=== PATIENT | female | born 1960 | race Caucasian/White ===

== ENCOUNTER 2019-04-01 09:30 | Emergency (ER) | payer MEDICAID ==
[~2019-04-01] VITALS: Ht 170.2 cm; Wt 63.5 kg
[~2019-04-01 09:30] MED LIST: ALB5IS NEB; CARB25TA77; CARI350T22; CLON0.1T; DOXE50CA57; FLU220IH; HYDR-1421 PO; IBUP800T24 PO; IPRASOL39 NEB; LORA10CA7; LORA1TAB12; OMEP20TA69; PAROXETINE; RANI150C11; SENN8.6T21 PO; TRAZ150T79; [UNRECOGNIZED DRUG - OTHER]
[2019-04-01] MEDS: SODIUM CHLORIDE 0.9% 1,000 ML IVB ONE (10:27)
[2019-04-01 10:32] LABS: Basophils # (auto) 0.1 uL; Basophils % (auto) 0.9 % (0.0-2.0); Eosinophils # (auto) 0 uL; Hematocrit 43.6 % (36.0-46.0); Hemoglobin 15.3 g/dL (12.2-16.2); Lymphocytes # (auto) 1.1 uL; Lymphocytes % (auto) 18.6 % (10.0-50.0); Mean Corpuscular Hemoglobin 29.5 pg (28.0-32.0); Mean Corpuscular Hgb Conc. 35.1 g/dL (32.0-36.0); Monocytes # (auto) 0.5 uL; Monocytes % (auto) 7.6 % (0.0-12.0); Neutrophils # (auto) 4.4 uL; Neutrophils % (auto) 72.9 % (37.0-80.0); Nucleated Red Blood Cells % 0.2 %; Platelet Count (auto) 377 10^3/uL (140-450); Red Blood Cells 5.19 10^6/uL (4.0-5.20); Red Cell Distribution Width 12.9 % (11.8-14.3)
[2019-04-01 11:06] LABS: Alanine Aminotransferase 17 U/L (13-56); Albumin 4.3 g/dL (3.4-5.0); Anion Gap 13 (5-15); BUN/Creatinine Ratio 16.9; Blood Alcohol < 3.0 mg/dL (0-5); Blood Urea Nitrogen 15 mg/dL (7-18); Calcium 9.9 mg/dL (8.5-10.1); Carbon Dioxide 19 mmol/L (21-32); Chloride 108 mmol/L (98-107); GFR African American 84 mL/min; GFR Non-African American 69 mL/min; Glucose 124 mg/dL (74-106); Potassium 3.1 mmol/L (3.5-5.1); Sodium 140 mmol/L (136-145); Total Protein 8.4 g/dL (6.4-8.2)
[2019-04-01 11:08] LABS: Alkaline Phosphatase 92 U/L (45-117); Aspartate Aminotransferase 16 U/L (15-37)
[2019-04-01 11:26] LABS: Urine Bacteria FEW /hpf (None Seen); Urine Blood TRACE /uL (Negative); Urine Specific Gravity 1.005 (1.001-1.035); Urine WBC 17 /hpf (0 - 5); Urine WBC Clumps PRESENT /hpf (None Seen)
[2019-04-01] MEDS: cefTRIAXone 1GM/50ML D5W 50 ML IV ONE (13:38)
[2019-04-01] MEDS: POTASSIUM EFFERVESENT TAB 25 MEQ PO ONE (13:38)
[2019-04-01 13:46] VITALS: BP 146/62
== END 2019-04-01 13:55 | disposition home or self-care (01) ==
LOC: ER 09:30 → EDBD 09:30 → OVERFLOW 09:31 → UNDOADMIN 09:31 → ER 13:55
DX: E86.0 Dehydration (principal); N39.0 Urinary tract infection, site not specified; F20.9 Schizophrenia, unspecified; F32.9 Major depressive disorder, single episode, unspecified; F41.9 Anxiety disorder, unspecified; J44.9 Chronic obstructive pulmonary disease, unspecified; F17.210 Nicotine dependence, cigarettes, uncomplicated; E87.6 Hypokalemia; Z86.73 Personal history of transient ischemic attack (TIA), and cerebral infarction without residual deficits
CPT/HCPCS: 36415; 70450; 80053; 80320; 81001; 84484; 85025; 93005; 96361; 96365; 99284; J0696; J7030

== ENCOUNTER 2019-05-25 23:34 | Inpatient (IN) | payer MEDICAID ==
[~2019-05-25] VITALS: Ht 170.2 cm; Wt 71.2 kg
[~2019-05-25 23:34] MED LIST changes: -LORA1TAB12; +LORA1TAB23; -TRAZ150T79; +TRAZ1TAB12
[2019-05-26] VITALS (8 sets, daily range): BP systolic 123–160; BP diastolic 79–97
[2019-05-26 00:32] LABS: Basophils # (auto) 0 10 ^3/uL (0-0.2); Basophils % (auto) 0.6 % (0.0-2.0); Eosinophils # (auto) 0 10 ^3/uL (0-0.8); Hematocrit 45.4 % (36.0-46.0); Hemoglobin 15.8 g/dL (12.2-16.2); Lymphocytes # (auto) 1.1 10 ^3/uL (0.4-5.4); Lymphocytes % (auto) 13.2 % (10.0-50.0); Mean Corpuscular Hemoglobin 29.6 pg (28.0-32.0); Mean Corpuscular Hgb Conc. 34.9 g/dL (32.0-36.0); Mean Corpuscular Volume 84.8 fL (80.0-100.0); Monocytes # (auto) 0.3 10 ^3/uL (0-1.3); Monocytes % (auto) 4.1 % (0.0-12.0); Neutrophils # (auto) 6.7 10 ^3/uL (1.6-8.6); Neutrophils % (auto) 82.1 % (37.0-80.0); Nucleated Red Blood Cells % 0.1 %; Platelet Count (auto) 370 10^3/uL (140-450); Red Blood Cells 5.35 10^6/uL (4.0-5.20); Red Cell Distribution Width 13.4 % (11.8-14.3); White Blood Cell 8.2 10^3/uL (4.4-10.8)
[2019-05-26 00:33] LABS: Alanine Aminotransferase 22 U/L (13-56); Albumin 4.1 g/dL (3.4-5.0); Anion Gap 12 (5-15); Aspartate Aminotransferase 21 U/L (15-37); BUN/Creatinine Ratio 12.7; Blood Alcohol < 3.0 mg/dL (0-5); Blood Urea Nitrogen 15 mg/dL (7-18); Carbon Dioxide 19 mmol/L (21-32); Chloride 105 mmol/L (98-107); GFR African American 61 mL/min; GFR Non-African American 50 mL/min; Glucose 148 mg/dL (74-106); Magnesium 1.9 mg/dL (1.6-2.6); Potassium 3.5 mmol/L (3.5-5.1); Sodium 136 mmol/L (136-145)
[2019-05-26 00:36] LABS: Lactic Acid w/Reflex 3.1 mmol/L (0.4-2.0)
[2019-05-26 00:39] LABS: Alkaline Phosphatase 117 U/L (45-117); INR 1.12 (0.9-1.15); Partial Thromboplastin Time 30.8 sec (23.64-32.05); Total Protein 8.8 g/dL (6.4-8.2)
[2019-05-26] MEDS ORDERED: SODIUM CHLORIDE 0.9% 1,000 ML IV ONE (03:00)
[2019-05-26] MEDS ORDERED: SODIUM CHLORIDE 0.9% 2,000 ML IV ONE (03:45)
[2019-05-26] MEDS ORDERED: LORazepam 2MG/ML-1ML VIAL IV ONE (03:45)
[2019-05-26] MEDS ORDERED: SODIUM CHLORIDE 0.9% 1,000 ML IV SCH (04:51)
[2019-05-26] MEDS ORDERED: IPRATROPIUM BROM 0.5 MG/2.5ML INH SOL NEB PRN (05:00)
[2019-05-26] MEDS ORDERED: DOCUSATE SOD 100 MG CAP PO PRN (05:00)
[2019-05-26] MEDS ORDERED: ACETAMINOPHEN 325 MG TAB PO PRN (05:00)
[2019-05-26] MEDS ORDERED: DEXTROSE (50%) 50ML SYRG IV PRN (05:00)
[2019-05-26] MEDS ORDERED: LORazepam 2MG/ML-1ML VIAL IV PRN (05:00)
[2019-05-26] MEDS ORDERED: ALBUTEROL SULF 2.5 MG/0.5ML(0.5%) NEB SOLN NEB PRN (05:00)
--- NOTE | 2019-05-26 05:18 | NUR ---
Respiratory note: PRN MED NEB TX NOT INDICATED AT THIS TIME. HR 104, RR 16, SPO2 96%, BS CLEAR. NO SIGNS OR SYMPTOMS OF RESPIRATORY DISTRESS NOTED AT THIS TIME. PT INFORMED TO CALL RN IF FEELING SOB OR WHEEZING.
[2019-05-26] MEDS: ONDANSETRON HCL 4 MG/2 ML VIAL IV PRN ×2 (06:26→06:34)
[2019-05-26] MEDS ORDERED: PANTOPRAZOLE 40 MG/10 ML VIAL INJ IV ONE (06:30)
[2019-05-26 06:33] LABS: Potassium 3.3 mmol/L (3.5-5.1)
[2019-05-26 06:44] LABS: Urine WBC None Seen /hpf (0 - 5)
[2019-05-26 06:56] LABS: Urine Bacteria NONE SEEN /hpf (None Seen); Urine Blood Negative /uL (Negative); Urine Specific Gravity 1.018 (1.001-1.035)
[2019-05-26 06:57] LABS: Basophils # (auto) 0 10 ^3/uL (0-0.2); Basophils % (auto) 0.3 % (0.0-2.0); Eosinophils # (auto) 0 10 ^3/uL (0-0.8); Hematocrit 41.9 % (36.0-46.0); Hemoglobin 14.8 g/dL (12.2-16.2); Lymphocytes # (auto) 1.1 10 ^3/uL (0.4-5.4); Lymphocytes % (auto) 12.5 % (10.0-50.0); Mean Corpuscular Hemoglobin 29.9 pg (28.0-32.0); Mean Corpuscular Hgb Conc. 35.2 g/dL (32.0-36.0); Monocytes # (auto) 0.8 10 ^3/uL (0-1.3); Monocytes % (auto) 8.8 % (0.0-12.0); Neutrophils # (auto) 6.9 10 ^3/uL (1.6-8.6); Neutrophils % (auto) 78.4 % (37.0-80.0); Nucleated Red Blood Cells % 0.1 %; Platelet Count (auto) 334 10^3/uL (140-450); Red Blood Cells 4.94 10^6/uL (4.0-5.20); Red Cell Distribution Width 13.3 % (11.8-14.3); White Blood Cell 8.8 10^3/uL (4.4-10.8)
[2019-05-26 07:16] LABS: Alcohol, Urine < 3.0 mg/dL (0-5); Amphetamine Screen, Urine NEGATIVE (NEGATIVE); Barbiturate Scree,Urine NEGATIVE (NEGATIVE); Benzodiazephine Screen, Urine NEGATIVE (NEGATIVE); Cannabinoid Screen, Urine POSITIVE (NEGATIVE); Cocaine Screen, Urine NEGATIVE (NEGATIVE); Opiate Scree,Urine NEGATIVE (NEGATIVE); Phencyclidine Screen, Urine NEGATIVE (NEGATIVE)
[2019-05-26] MEDS ORDERED: ACCU-CHEK COMFORT CURVE STRIP VI SCH (08:00)
[2019-05-26] MEDS ORDERED: InsuLIN REG 1unit/0.01ml Soln (100units/ml) SC SCH (08:00)
[2019-05-26] MEDS ORDERED: POTASSIUM CHL 20 Meq TABLET PO ONE (11:00)
[2019-05-26] MEDS ORDERED: chlordiazePOXIDE HCL 25 MG CAP PO PRN (11:00)
[2019-05-26] MEDS ORDERED: QUET150T2 PO (11:42)
[2019-05-26] MEDS ORDERED: ONDA-155 PO (11:42)
[2019-05-26] MEDS ORDERED: OXYB10TA14 PO (11:42)
[2019-05-26] MEDS ORDERED: GABA300C10 PO (11:42)
[2019-05-26] MEDS ORDERED: AML5T PO (11:42)
[2019-05-26] MEDS ORDERED: LORA-655 PO (11:42)
[2019-05-26] MEDS ORDERED: ROPI6TAB PO (11:42)
[2019-05-26] MEDS ORDERED: ATOR20TA PO (11:42)
[2019-05-26] MEDS ORDERED: POM (11:42)
[2019-05-26 11:45] LABS: Folate (Folic Acid) 20.51 ng/mL (5.38-24)
[2019-05-26] MEDS: cloNIDine HCL 0.1 MG TAB PO SCH ×2 (12:13→21:17)
[2019-05-26] MEDS: traZODone HCL 50 MG TAB PO SCH (12:14)
[2019-05-26] MEDS: PARoxetine 20 MG TAB PO SCH (12:14)
--- NOTE | 2019-05-26 12:20 | NUR ---
Received report from Daria/RN, pt is resting comfortably sitting in bed, sitter at bed side, no pain or distress noted or reported.
--- NOTE | 2019-05-26 13:25 | NUR ---
Report given to Didian/RN.
--- NOTE | 2019-05-26 13:29 | NUR ---
RECEIVED REPORT AND ASSUMED CARE OF PT. PT RESTING IN BED. NO S/S ACUTE DISTRESS NOTED. SAFETY ATTENDANCE AT BEDSIDE. BED AT LOWEST POSITION. CALL LIGHT AND BELONGINGS WITHIN REACH. WILL CONT TO MONITOR.
[2019-05-26] MEDS: FOLIC ACID 1 MG, MULTIPLE VITAMIN 10 ML, MAGNESIUM SULF SDV 50% 8 MEQ, THIAMINE INJ 100... INJ SCH ×5 (14:02)
[2019-05-26] MEDS: PANTOPRAZOLE 40 MG TAB PO SCH (18:23)
--- NOTE | 2019-05-26 19:25 | NUR ---
PT RESTING IN BED. NO S/S ACUTE DISTRESS NOTED. ENDORSED CARE TO NIGHT NURSE.
--- NOTE | 2019-05-26 19:35 | NUR ---
pt is resting in semi fowlers position w/ HOB elevated 30 degrees, watching television. pt denies any pain or discomfort, and does not show signs and symptoms of distress or discomfort at this time. Sitter is at the bedside. Pt is A&Ox3 at this time, self time and place. respirations are even and non labored on room air. POC discussed with patient.
--- NOTE | 2019-05-26 20:31 | NUR ---
Respiratory note: PRN HHN TX NOT INDICATED AT THIS TIME. PT DOES NOT DISPLAY SIGNS OF ANY DISTRESS AT THIS TIME. SPO2 95% ON RA HR 85 RR 16 BS CLEAR PT AWARE OF NURSE CARE BUTTON AND HOW TO OPERATE. PT INFORMED TO CALL IF ONSET OF SOB.
[2019-05-27] VITALS (7 sets, daily range): BP systolic 122–153; BP diastolic 72–91
--- NOTE | 2019-05-27 01:05 | NUR ---
pt resting in semi fowlers position with head of bed elevated to 30 degrees. pt denies any pain or discomfort at this time, and is enjoying television. Sitter is at the bedside. Will continue to monitor.
--- NOTE | 2019-05-27 03:00 | NUR ---
pt resting in semi fowlers with eyes open. pt has not slept all night. pt denies pain or discomfort at this time. respirations are even and non labored. pt has gotten up to bedside commode one time per the Sitters report. bed in low locked position, call light within reach. Will continue to monitor.
[2019-05-27 06:29] LABS: Calcium 8.6 mg/dL (8.5-10.1)
[2019-05-27 06:39] LABS: BUN/Creatinine Ratio 17.1
--- NOTE | 2019-05-27 06:41 | NUR ---
paged hospitalist regarding potassium lab of 3.0
--- NOTE | 2019-05-27 06:42 | NUR ---
closing note pt resting in semi fowlers position watching tv. pt denies any s/s of pain or discomfort. respirations are even and nonlabored on room air. call light within reach.
--- NOTE | 2019-05-27 06:58 | NUR ---
PRN MN TX NOT INDICATED AT THIS TIME. PT IS ON RA, 94% O2 SATS. HR 62 BPM, RR19 BPM, BS ARE CLEAR TO AUSCULTATION. NO SOB OR ANY OTHER RESPIRATORY DISTRESS NOTED. WILL CONTINUE TO MONITOR PT.
--- NOTE | 2019-05-27 07:30 | NUR ---
Opening Note Assumed patient care from LACY RN.
--- NOTE | 2019-05-27 09:22 | NUR ---
Paged MD Dr. Whitfield aware of potassium level, will carry out new orders.
[2019-05-27] MEDS ORDERED: POTASSIUM CHL 20 Meq TABLET PO ONE (09:45)
--- NOTE | 2019-05-27 10:12 | NUR ---
MD at bedside MD at bedside discussing plan of care with patient.
[2019-05-27] MEDS: cloNIDine HCL 0.1 MG TAB PO SCH ×2 (10:22→22:11)
[2019-05-27] MEDS: PARoxetine 20 MG TAB PO SCH (10:23)
[2019-05-27] MEDS: traZODone HCL 50 MG TAB PO SCH (10:23)
[2019-05-27] MEDS: ONDANSETRON HCL 4 MG/2 ML VIAL IV PRN ×2 (11:28→17:56)
--- NOTE | 2019-05-27 13:45 | NUR ---
MD Per MD request, bladder scan completed. Dr. Whitfield notified of results, will carry out new orders.
[2019-05-27] MEDS: FOLIC ACID 1 MG, MULTIPLE VITAMIN 10 ML, MAGNESIUM SULF SDV 50% 8 MEQ, THIAMINE INJ 100... INJ SCH ×5 (14:58)
--- NOTE | 2019-05-27 16:55 | NUR ---
Buck Buck Inserted per MD request for urinary retention. Urine sample obtained and sent to lab.
--- NOTE | 2019-05-27 17:40 | NUR ---
IV LEFT HAND IV DISCONTINUED RIGHT FOREARM IV 20 GAUGE INSERTED. PATIENT TOLERATED WELL. NO SIGNS OF DISTRESS AT THIS TIME, RESPIRATIONS EVEN AND UNLABORED. WILL CONTINUE TO MONITOR.
[2019-05-27 17:46] LABS: Urine Bacteria NONE SEEN /hpf (None Seen); Urine Blood Negative /uL (Negative); Urine Mucus FEW (None Seen); Urine Specific Gravity 1.023 (1.001-1.035); Urine WBC <1 /hpf (0 - 5)
[2019-05-27] MEDS: PANTOPRAZOLE 40 MG TAB PO SCH (17:47)
[2019-05-27] MEDS ORDERED: Ensure Enlive Strawberry 8oz Bottle PO SCH (18:00)
[2019-05-27] MEDS: Glucerna Carbsteady SHAKE Stawberry 8oz PO SCH (18:56)
--- NOTE | 2019-05-27 19:20 | NUR ---
Closing Report given to LACY DE JESUS.
--- NOTE | 2019-05-27 19:29 | NUR ---
Opening Shift Note Assumed care of patient. Pt is awake, alert and orientated x 4. Sitter is at bedside. No S/S of distress/SOB or pain. Pt is calm and speaking appropriately. Bed is in lowest position with side rails up x 2. Bed brakes are locked and call light is with in reach. HOB is 30 degrees. Buck catheter is patent with no kinks, loops, and is below bladder. Instructed on POC and to call for assist PRN, will continue to monitor for changes Q1hr and PRN.
[2019-05-27] MEDS: QUEtiapine FUMARATE 100 MG TAB PO SCH (22:11)
[2019-05-27] MEDS: GABAPENTIN 300 MG CAP PO SCH (22:11)
[2019-05-28] VITALS (7 sets, daily range): BP systolic 90–130; BP diastolic 51–78
--- NOTE | 2019-05-28 07:30 | NUR ---
Opening Note Assumed patient care from LACY RN.
--- NOTE | 2019-05-28 08:00 | NUR ---
Patient Rounds Patient is currently sleeping, respirations are even and unlabored, no signs of distress noted at this time. Safety precautions in place, will continue to monitor.
--- NOTE | 2019-05-28 09:15 | NUR ---
Respiratory note: PT IS AWAKE, AND ALERT. NO RESPIRATORY DISTRESS NOTED. SPO2 94% ON RA, HR 78, RR 20, BS CLEAR BILATERALLY. PRN MEDNEB TX NOT INDICATED AT THIS TIME. PT INFORMED TO PUSH CALL BUTTON IF INCREASED WOB, SOB, OR WHEEZING OCCURS.
--- NOTE | 2019-05-28 10:20 | NUR ---
at bedside Dr. Whitfield at bedside discussing plan of care with patient, will carry out new orders.
[2019-05-28] MEDS ORDERED: PANTOPRAZOLE 40 MG TAB PO ONE (10:30)
--- NOTE | 2019-05-28 10:40 | NUR ---
Ambulate Patient up with PT.
--- NOTE | 2019-05-28 10:45 | NUR ---
Son Spoke with patient son via phone, pw confirmed. Patient also spoke with Dr. Whitfield, plan of care discussed with son.
--- NOTE | 2019-05-28 10:50 | NUR ---
Patient Family Spoke with daughterGloria, over phone, password confirmed. Discussed plan of care with daughter. Daughter requested to be contact for any updates or questions regarding the patient. , if not able to reach on cell, call work phone
[2019-05-28] MEDS: PARoxetine 20 MG TAB PO SCH (11:29)
[2019-05-28] MEDS: GABAPENTIN 300 MG CAP PO SCH ×2 (11:30→22:29)
[2019-05-28] MEDS: ONDANSETRON HCL 4 MG/2 ML VIAL IV PRN (11:30)
[2019-05-28] MEDS: cloNIDine HCL 0.1 MG TAB PO SCH (11:30)
[2019-05-28] MEDS: traZODone HCL 50 MG TAB PO SCH (11:31)
[2019-05-28] MEDS: Glucerna Carbsteady SHAKE Stawberry 8oz PO SCH ×3 (11:38→18:41)
[2019-05-28] MEDS: FOLIC ACID 1 MG, MULTIPLE VITAMIN 10 ML, MAGNESIUM SULF SDV 50% 8 MEQ, THIAMINE INJ 100... INJ SCH ×5 (12:59)
[2019-05-28 13:48] LABS: Alcohol, Urine < 3.0 mg/dL (0-5); Amphetamine Screen, Urine NEGATIVE (NEGATIVE); Barbiturate Scree,Urine NEGATIVE (NEGATIVE); Benzodiazephine Screen, Urine NEGATIVE (NEGATIVE); Cannabinoid Screen, Urine POSITIVE (NEGATIVE); Cocaine Screen, Urine NEGATIVE (NEGATIVE); Opiate Scree,Urine NEGATIVE (NEGATIVE); Phencyclidine Screen, Urine NEGATIVE (NEGATIVE)
[2019-05-28] MEDS ORDERED: OXYBUTYNIN CHL 5 MG TAB PO ONE (14:45)
--- NOTE | 2019-05-28 16:03 | NUR ---
EEG Per MD order, called EEG, no answer, will follow up.
--- NOTE | 2019-05-28 16:24 | NUR ---
EEG Called EEG, no answer, will follow up.
--- NOTE | 2019-05-28 16:35 | NUR ---
ASSESSMENT Patient is a 59 year old female who is confused. Prior to admission patient lived home with her son Waylon and needed assistance. Per consult SNF placement. Per Dr Whitfield she has spoken to patients son Waylon and he agrees to SNF. I have left multiple messages for Waylon to call me back. Mindy teixeira will send to all 3 SNF's and if Waylon calls me back he can choose what one he prefers. Waiting transformation consultant back now. Addendum: 05/28/19 at 1639 by Dang LEIVA Amended: Links added.
--- NOTE | 2019-05-28 17:53 | NUR ---
EEG Called for EEG x2.
--- NOTE | 2019-05-28 19:15 | NUR ---
Closing Note Report given to LACY DE JESUS.
--- NOTE | 2019-05-28 20:03 | NUR ---
Family update Spoke to daughter, anny, over POC. Anny verbalized understanding and agreed with POC.
[2019-05-28] MEDS: PANTOPRAZOLE 40 MG TAB PO SCH (22:30)
[2019-05-28] MEDS: QUEtiapine FUMARATE 100 MG TAB PO SCH (22:30)
[2019-05-29 05:09] VITALS: BP 91/69
[2019-05-29 06:46] LABS: Potassium 3.7 mmol/L (3.5-5.1)
[2019-05-29 06:50] LABS: BUN/Creatinine Ratio 18.3; Calcium 8.3 mg/dL (8.5-10.1)
--- NOTE | 2019-05-29 07:24 | NUR ---
PT. ASSESSED FOR PRN. MN. TX., NO RESP. DISTRESS OR SOB NOTED. BS. ARE CLEAR, HR=62, RR=18,SP02=93% ON RA. TX. NOT INDICATED AT THIS TIME. PT. INSTRUCTED TO CALL IF NEEDED. NO TX. GIVEN AT THIS TIME. Addendum: 05/29/19 at 0945 by Natacha Omalley RT Amended: Links added.
[2019-05-29] MEDS: Glucerna Carbsteady SHAKE Stawberry 8oz PO SCH ×2 (08:00→12:00)
[2019-05-29 09:00] VITALS: BP 114/42
[2019-05-29] MEDS ORDERED: OXYBUTYNIN CHL 5 MG TAB PO ONE (09:45)
--- NOTE | 2019-05-29 10:10 | NUR ---
Bautista Discontinued Discontinued the bautista catheter per Dr. Whitfield's order. D/Kwesi at 10am, patient due to void at 1400hrs. Once she voids she will be good to discharge,
[2019-05-29] MEDS: GABAPENTIN 300 MG CAP PO SCH (11:16)
[2019-05-29] MEDS: PARoxetine 20 MG TAB PO SCH (11:17)
[2019-05-29] MEDS: PANTOPRAZOLE 40 MG TAB PO SCH (11:17)
[2019-05-29] MEDS: traZODone HCL 50 MG TAB PO SCH (11:18)
--- NOTE | 2019-05-29 11:54 | NUR ---
EEG- electroencephalogram completed on 05/29/2019.
[2019-05-29] MEDS: FOLIC ACID 1 MG, MULTIPLE VITAMIN 10 ML, MAGNESIUM SULF SDV 50% 8 MEQ, THIAMINE INJ 100... INJ SCH ×5 (13:02)
[2019-05-29] MEDS ORDERED: OXYBUTYNIN CHL 5 MG TAB PO SCH (14:00)
[2019-05-29 14:27] VITALS: BP 114/62
--- NOTE | 2019-05-29 15:17 | NUR ---
D/C Planning Per SS consult for home health for safety evaluation, physical therapy, medication management and vitals. Faxed order to [facility]. Per Suha with [facility] ) patient has been accepted and service to start within 24-48hrs upon d/c day. Faxed order to [facility] requesting authorization for [facility]. Per Alessandra with [facility] authorization is [id number].
--- NOTE | 2019-05-29 16:53 | NUR ---
assessment Patient is alert and oriented today. Per Patient prior to admission she rented a room and functioned with assistance from her caregiver Laila [phone]. Per patient she refuses SNF. Per patient she will return home on discharge. Patient informed me she has a fww for home use. Patients caregiver will be with her everyday if she needs it. Patients PCP is Dr Jo. Patient will benefit from home health safety eval on discharge. I informed patient she has a right to speak to a social media content specialist regarding all care. I informed patient she has a right to participate in any and all discharge planning. Patient does not have a POA and advanced directive. I have offered patient information on POA and advanced directives. I informed the patient the advantages and benefits of having an Advanced Directive. Patient verbalized understanding and agreed to discharge plan. Addendum: 05/29/19 at 1656 by Dang LEIVA Amended: Links added.
== END 2019-05-29 15:50 | disposition home or self-care (01) | DRG 52 ==
LOC: EDBD 23:34 → ER 23:37 → TELE 23:38 → TELE-CENTR 05-26 09:00
PROVIDERS: ADMIT Hospitalist; ATTEND Internal Medicine
DX: G92 Toxic encephalopathy (principal); N17.0 Acute kidney failure with tubular necrosis; F12.90 Cannabis use, unspecified, uncomplicated; F10.10 Alcohol abuse, uncomplicated; R41.0 Disorientation, unspecified; R40.0 Somnolence; R73.9 Hyperglycemia, unspecified; I10 Essential (primary) hypertension; E86.0 Dehydration; F02.80 Dementia in other diseases classified elsewhere, unspecified severity, without behavioral disturbance, psychotic disturbance, mood disturbance, and anxiety; H57.02 Anisocoria; Z88.5 Allergy status to narcotic agent; Z79.899 Other long term (current) drug therapy; M19.90 Unspecified osteoarthritis, unspecified site; J44.9 Chronic obstructive pulmonary disease, unspecified; F41.9 Anxiety disorder, unspecified; F32.9 Major depressive disorder, single episode, unspecified; Z90.49 Acquired absence of other specified parts of digestive tract; Z86.73 Personal history of transient ischemic attack (TIA), and cerebral infarction without residual deficits; F17.210 Nicotine dependence, cigarettes, uncomplicated; F20.9 Schizophrenia, unspecified; Z80.9 Family history of malignant neoplasm, unspecified; Z82.61 Family history of arthritis; Z82.5 Family history of asthma and other chronic lower respiratory diseases; Z83.3 Family history of diabetes mellitus; Z82.49 Family history of ischemic heart disease and other diseases of the circulatory system; G89.29 Other chronic pain; R33.9 Retention of urine, unspecified; K21.9 Gastro-esophageal reflux disease without esophagitis
CPT/HCPCS: 36415; 70450; 71045; 74176; 80048; 80053; 80061; 80307; 80320; 81001; 82140; 82607; 82746; 82962; 83036; 83605; 83735; 84484; 85025; 85610; 85730; 87040; 87086; 87088; 87186; 95819; 96361; 96374; 96375; 97163; G0378; J2405

== ENCOUNTER → 2019-07-02 | Emergency (ER) | payer MEDICAID ==
[~2019-07-02] VITALS: Ht 167.6 cm; Wt 68.0 kg
[~2019-07-02] MED LIST changes: +AML5T PO; +ATOR20TA PO; -CARB25TA77; -CARI350T22; +CEPH250C PO; -CLON0.1T; +CLON0.5T3 PO; -DOXE50CA57; +GABA300C10 PO; -HYDR-1421 PO; -IBUP800T24 PO; +LORA-655 PO; -LORA10CA7; -LORA1TAB23; -OMEP20TA69; +ONDA-155 PO; +OXYB10TA14 PO; +POM; +QUET150T2 PO; -RANI150C11; +ROPI6TAB PO; -SENN8.6T21 PO; -TRAZ1TAB12
[2019-07-02 19:06] LABS: Basophils # (auto) 0.1 10 ^3/uL (0-0.2); Basophils % (auto) 1.3 % (0.0-2.0); Eosinophils # (auto) 0 10 ^3/uL (0-0.8); Eosinophils % (auto) 0.1 % (0.0-7.0); Hematocrit 42.4 % (36.0-46.0); Hemoglobin 14.4 g/dL (12.2-16.2); Lymphocytes # (auto) 1.4 10 ^3/uL (0.4-5.4); Lymphocytes % (auto) 28.2 % (10.0-50.0); Mean Corpuscular Hemoglobin 28.6 pg (28.0-32.0); Mean Corpuscular Hgb Conc. 33.8 g/dL (32.0-36.0); Mean Corpuscular Volume 84.5 fL (80.0-100.0); Monocytes # (auto) 0.6 10 ^3/uL (0-1.3); Monocytes % (auto) 11.9 % (0.0-12.0); Neutrophils % (auto) 58.5 % (37.0-80.0); Nucleated Red Blood Cells % 0.1 %; Platelet Count (auto) 332 10^3/uL (140-450); Red Blood Cells 5.02 10^6/uL (4.0-5.20); White Blood Cell 5.1 10^3/uL (4.4-10.8)
[2019-07-02 19:23] LABS: Albumin 4.1 g/dL (3.4-5.0); Calcium 9.5 mg/dL (8.5-10.1); Potassium 3.1 mmol/L (3.5-5.1)
[2019-07-02 19:26] LABS: BUN/Creatinine Ratio 9.3; Bilirubin, Total 0.8 mg/dL (0.2-1.0)
[2019-07-02 21:05] LABS: Basophils # (auto) 0.1 10 ^3/uL (0-0.2); Basophils % (auto) 1.2 % (0.0-2.0); Eosinophils # (auto) 0 10 ^3/uL (0-0.8); Eosinophils % (auto) 0.3 % (0.0-7.0); Hematocrit 42.1 % (36.0-46.0); Hemoglobin 14.2 g/dL (12.2-16.2); Lymphocytes # (auto) 1.9 10 ^3/uL (0.4-5.4); Lymphocytes % (auto) 32.5 % (10.0-50.0); Mean Corpuscular Hemoglobin 28.7 pg (28.0-32.0); Mean Corpuscular Hgb Conc. 33.8 g/dL (32.0-36.0); Mean Corpuscular Volume 84.9 fL (80.0-100.0); Monocytes # (auto) 0.7 10 ^3/uL (0-1.3); Monocytes % (auto) 12.3 % (0.0-12.0); Neutrophils # (auto) 3.1 10 ^3/uL (1.6-8.6); Neutrophils % (auto) 53.7 % (37.0-80.0); Nucleated Red Blood Cells % 0.1 %; Platelet Count (auto) 333 10^3/uL (140-450); Red Blood Cells 4.96 10^6/uL (4.0-5.20); Red Cell Distribution Width 13.1 % (11.8-14.3); White Blood Cell 5.8 10^3/uL (4.4-10.8)
[2019-07-02 21:22] LABS: Albumin 4.2 g/dL (3.4-5.0); Anion Gap 10 (5-15); Blood Urea Nitrogen 11 mg/dL (7-18); Calcium 9.5 mg/dL (8.5-10.1); Carbon Dioxide 24 mmol/L (21-32); Chloride 106 mmol/L (98-107); Glucose 93 mg/dL (74-106); Potassium 3.2 mmol/L (3.5-5.1); Sodium 140 mmol/L (136-145)
[2019-07-02 21:32] LABS: Alanine Aminotransferase 19 U/L (13-56); Alkaline Phosphatase 115 U/L (45-117); Aspartate Aminotransferase 16 U/L (15-37); BUN/Creatinine Ratio 9.2; Bilirubin, Total 0.8 mg/dL (0.2-1.0); GFR African American 59 mL/min; GFR Non-African American 49 mL/min
[2019-07-02 22:28] VITALS: BP 155/94
== END | disposition home or self-care (01) ==
LOC: EDUNIT# 18:25 → EDBD 18:26 → ER 18:31
DX: R41.82 Altered mental status, unspecified (principal); F20.9 Schizophrenia, unspecified; F41.9 Anxiety disorder, unspecified; M19.90 Unspecified osteoarthritis, unspecified site; J44.9 Chronic obstructive pulmonary disease, unspecified; F32.9 Major depressive disorder, single episode, unspecified; I10 Essential (primary) hypertension; F17.210 Nicotine dependence, cigarettes, uncomplicated
CPT/HCPCS: 36415; 70450; 80053; 84484; 85025; 93005

== ENCOUNTER 2019-07-03 11:17 | Inpatient (IN) | payer MEDICAID ==
[~2019-07-03] VITALS: Ht 165.1 cm; Wt 68.1 kg
[~2019-07-03 11:17] MED LIST changes: -CEPH250C PO; -CLON0.5T3 PO
[2019-07-03] MEDS ORDERED: SODIUM CHLORIDE 0.9% 500 ML IVB ONE (11:26)
[2019-07-03 12:04] LABS: Basophils # (auto) 0.1 10 ^3/uL (0-0.2); Basophils % (auto) 1.1 % (0.0-2.0); Eosinophils # (auto) 0 10 ^3/uL (0-0.8); Eosinophils % (auto) 0.1 % (0.0-7.0); Hematocrit 42.4 % (36.0-46.0); Hemoglobin 14.1 g/dL (12.2-16.2); Lymphocytes # (auto) 1.3 10 ^3/uL (0.4-5.4); Lymphocytes % (auto) 21.9 % (10.0-50.0); Mean Corpuscular Hemoglobin 28.5 pg (28.0-32.0); Mean Corpuscular Hgb Conc. 33.2 g/dL (32.0-36.0); Mean Corpuscular Volume 85.9 fL (80.0-100.0); Monocytes # (auto) 0.6 10 ^3/uL (0-1.3); Neutrophils # (auto) 3.8 10 ^3/uL (1.6-8.6); Neutrophils % (auto) 66.9 % (37.0-80.0); Nucleated Red Blood Cells % 0.1 %; Platelet Count (auto) 350 10^3/uL (140-450); Red Blood Cells 4.93 10^6/uL (4.0-5.20); Red Cell Distribution Width 13.1 % (11.8-14.3); White Blood Cell 5.7 10^3/uL (4.4-10.8)
[2019-07-03 12:20] LABS: Albumin 4.3 g/dL (3.4-5.0); Anion Gap 14 (5-15); Blood Urea Nitrogen 15 mg/dL (7-18); Calcium 9.5 mg/dL (8.5-10.1); Carbon Dioxide 19 mmol/L (21-32); Chloride 107 mmol/L (98-107); Glucose 112 mg/dL (74-106); Potassium 3.2 mmol/L (3.5-5.1); Sodium 140 mmol/L (136-145)
[2019-07-03 12:25] LABS: Alanine Aminotransferase 18 U/L (13-56); Alkaline Phosphatase 114 U/L (45-117); Aspartate Aminotransferase 18 U/L (15-37); BUN/Creatinine Ratio 14.6; GFR African American 71 mL/min; GFR Non-African American 58 mL/min
[2019-07-03] MEDS ORDERED: LACTULOSE 20Gm/30ML SOLN PO PRN (13:15)
[2019-07-03] MEDS ORDERED: POTASSIUM EFFERVESENT TAB 25 MEQ PO ONE (13:15)
[2019-07-03] MEDS ORDERED: NITROGLYCERIN 0.4 MG SL TAB SL PRN (13:15)
[2019-07-03] MEDS ORDERED: ALBUTEROL SULF 2.5 MG/0.5ML(0.5%) NEB SOLN NEB PRN (13:15)
--- NOTE | 2019-07-03 13:54 | NUR ---
Telemetry admit from ER DAYNE CARLSON admitted to Telemetry unit after SBAR received. Patient oriented to DARRELL GIRON RN primary RN, unit, room, bed, and unit policies regarding patient care and visiting hours. Patient now on continuous telemetry monitoring, tele box #[id number]. Patient weighed by bedscale and encouraged to call if they need something. All questions and concerns addressed, patient verbalized understanding.
--- NOTE | 2019-07-03 14:12 | NUR ---
Page to Dr. Hensley Page to Dr. Hensley at this time. Vitals upon admission show a blood pressure of 147/108 and a pulse of 102. Assessed for trend, no previous blood pressures charted.
--- NOTE | 2019-07-03 14:18 | NUR ---
Call from Dr. Hensley Call from Dr. Hensley at this time. New orders given regarding patient's blood pressure.
--- NOTE | 2019-07-03 14:20 | NUR ---
Page to Dr. Hensley Page to Dr. Hensley. Patient is gesturing like she is nauseous and is complaining of hip pain.
[2019-07-03] MEDS ORDERED: ACETAMINOPHEN 500 MG TAB PO PRN (14:30)
[2019-07-03] MEDS ORDERED: LABETALOL HCL 5 MG/ML 4ML SYRINGE IV PRN (14:30)
--- NOTE | 2019-07-03 14:30 | NUR ---
Call back Call back from Dr. Hensley at this time. New orders given at this time. Orders to be input.
[2019-07-03] MEDS ORDERED: LABETALOL HCL 5 MG/ML ML 20ML VIAL IV PRN (15:15)
[2019-07-03] MEDS: LABETALOL HCL 5 MG/ML ML 20ML VIAL IV PRN (15:33)
[2019-07-03] MEDS: SODIUM CHLORIDE 0.9% 1,000 ML IV SCH (15:34)
[2019-07-03] MEDS: ONDANSETRON HCL 4 MG/2 ML VIAL IV PRN (15:34)
[2019-07-03 17:20] VITALS: BP 123/75
--- NOTE | 2019-07-03 18:54 | NUR ---
Respiratory note: ASSESSMENT FOR PRN MED NEB TX. HR 107, SPO2 97% ON ROOM AIR, RR 20, BS DIMINISHED. PT PRESENTING NO RESPIRATORY DISTRESS AT THIS TIME. MED NEB TX NOT INDICATED. SITTER AT BEDSIDE, AWARE TO HAVE RT PAGED IF NEEDED. WILL CONTINUE TO MONITOR.
[2019-07-03 19:10] VITALS: BP 123/75
--- NOTE | 2019-07-03 19:18 | NUR ---
Closing Shift Note Patient resting in bed. No distress noted. Report given. Will endorse care to the shift stacker RN.
--- NOTE | 2019-07-03 20:00 | NUR ---
Opening Shift Note Assumed care of patient. Patient is alert and oriented x1. Patient is oriented to self. Sitter is at bedside. No S/S of distress/SOB or pain. Patient is on room air. Respirations even and unlabored. Sitter states patient pulled her IV out. Patient has scant amount of bleeding from previous IV insertion site on right hand. Gauze applied. Instructed on POC and to call for assist PRN, will continue to monitor for changes Q1hr and PRN.
--- NOTE | 2019-07-03 20:05 | NUR ---
Hospitalist paged regarding patient having anxiety but no PRN medication available for anxiety. Awaiting callback at this time.
[2019-07-03 20:10] VITALS: BP 116/80
--- NOTE | 2019-07-03 20:35 | NUR ---
Received callback from REBECCA Izquierdo, regarding patient having anxiety but no PRN medication available for anxiety. New order received: Ativan 0.5 mg IV Q12HR for anxiety.
--- NOTE | 2019-07-03 20:53 | NUR ---
IV insertion IV access obtained, via clean sterile technique by inserting 22 gauge catheter at right wrist after 1 attempt by Kaitlin DE JESUS. IV secured properly. No trauma to site. Patient tolerated well. This RN had 3 previous unsuccessful IV insertion attempts.
[2019-07-03] MEDS: LORazepam 2MG/ML-1ML VIAL IV PRN (20:59)
[2019-07-03] MEDS: ATORVASTATIN 20 MG TAB PO SCH (21:00)
--- NOTE | 2019-07-03 21:15 | NUR ---
Received call from patient's daughter Gloria. Correct password provided. Update provided.
[2019-07-03 22:00] VITALS: BP 116/80
--- NOTE | 2019-07-03 22:59 | NUR ---
Temperature reassessed and is 99.3 F. Ice packs placed underneath patient's armpits. Will reassess and continue to monitor.
--- NOTE | 2019-07-04 | NUR ---
Temperature reassessed and is 98.6 F. Patient asymptomatic.
[2019-07-04] MEDS: SODIUM CHLORIDE 0.9% 1,000 ML IV SCH ×2 (01:26→09:53)
[2019-07-04 05:00] VITALS: BP 154/104
[2019-07-04] MEDS: LABETALOL HCL 5 MG/ML ML 20ML VIAL IV PRN ×3 (05:41→15:27)
[2019-07-04] MEDS: ONDANSETRON HCL 4 MG/2 ML VIAL IV PRN ×2 (05:41→09:45)
--- NOTE | 2019-07-04 06:39 | NUR ---
PT. ASSESSED FOR PRN. MN. TX. , NO RESP. DISTRESS OR SOB NOTED. BS. ARE CLEAR , PT. IS ON RA, SP02 97%,HR=74,RR=18. PRN. TX. NOT INDICATED AT THIS TIME. NO TX. GIVEN, PT. MAY CALL IF NEEDED
--- NOTE | 2019-07-04 07:00 | NUR ---
CLOSING NOTE Patient is on room air. Respirations even and unlabored. Patient has no S/S of distress/SOB or pain. Sitter at bedside with patient. Endorsed to day shift RN patient's BP at 0641, which was one hour after PRN BP medication Labetalol 10 mg IV was given, was 155/89. Patient asymptomatic.
--- NOTE | 2019-07-04 07:30 | NUR ---
Opening Shift Note Assuming care of patient at this time. Patient is awake and alert to self only. Patient denies pain. Patient shows no signs or symptoms of distress or shortness of breath. Bed is locked and lowered with side rails up x2. Instructed patient on the plan of care for today and to call for assistance as needed. Call light within reach. Will continue to round hourly and as needed. Sitter at bedside for safety.
[2019-07-04 09:00] VITALS: BP 159/84
[2019-07-04] MEDS: ENOXAPARIN SOD 40 MG/0.4 ML SYRINGE SC SCH (09:45)
[2019-07-04] MEDS: LORazepam 2MG/ML-1ML VIAL IV PRN (09:45)
[2019-07-04] MEDS: ASPirin 81 mg TAB PO SCH (09:52)
--- NOTE | 2019-07-04 12:20 | NUR ---
ELECTROENCEPHALOGRAM UNABLE TO COMPLETE EEG DUE TO PT BEING CONFUSED AND RESTLESS PULLING OF EEG LEADS. ATTEMPTED SEVERAL TIMES TO REORIENT PT BUT CONTINUES TO BE UNCOOPERATIVE. PRIMARY RN DARRELL GIRON.
[2019-07-04] MEDS ORDERED: PROMETHAZINE HCL 25 MG/ML 1ML IV PRN (12:45)
[2019-07-04 13:00] VITALS: BP 155/92
[2019-07-04 14:05] LABS: Folate (Folic Acid) > 24.00 ng/mL (5.38-24)
[2019-07-04 14:42] LABS: Urine Bacteria FEW /hpf (None Seen); Urine Blood Negative /uL (Negative); Urine Hyaline Cast FEW /lpf (0 - 2); Urine Mucus FEW (None Seen); Urine Specific Gravity 1.026 (1.001-1.035); Urine WBC 3 /hpf (0 - 5)
[2019-07-04 14:58] LABS: Amphetamine Screen, Urine NEGATIVE (NEGATIVE); Barbiturate Scree,Urine NEGATIVE (NEGATIVE); Benzodiazephine Screen, Urine NEGATIVE (NEGATIVE); Cannabinoid Screen, Urine POSITIVE (NEGATIVE); Cocaine Screen, Urine NEGATIVE (NEGATIVE); Opiate Scree,Urine NEGATIVE (NEGATIVE); Phencyclidine Screen, Urine NEGATIVE (NEGATIVE)
[2019-07-04] MEDS: GABAPENTIN 300 MG CAP PO SCH ×2 (15:24→21:52)
[2019-07-04] MEDS: PARoxetine 20 MG TAB PO SCH (15:25)
--- NOTE | 2019-07-04 16:04 | NUR ---
assessment re: ss consult abandonment of caregiver Patient is a 59 year old female who is confused. Per patients daughter Gloria prior to admission patient lived home with a friend and needed assistance. Per Gloria patient had a caregiver, but quit. I have provided Gloria with [facility] phone number to call and have another caregiver sent out. Patients PCP is Dr Jo. Patient has a fww for home use. Per Gloria patients doctor called her and asked for permission for [facility] to call her. Per Gloria she has been talking to Farzad from [facility], but would also like a list of providers. I have Emailed Gloria the hospice list. I informed Gloria there is no order as of now. Per Gloria she will bring patient home with her on discharge. I informed Gloria patients post discharge needs to be determined prior to discharge and after MD orders have been put in. Gloria verbalized understanding. Addendum: 07/04/19 at 1611 by Dang LEIVA Amended: Links added.
[2019-07-04 17:00] VITALS: BP 175/95
--- NOTE | 2019-07-04 18:00 | NUR ---
Call to ER Call to ER regarding patient's cell phone. Cell phone is unable to located at this time.
--- NOTE | 2019-07-04 18:05 | NUR ---
Spoke with Dr. Recio Spoke with Dr. Recio. New orders given for patient's blood pressure. Dr. Recio has spoken to patient's daughter. Once daughter signs hospice paperwork and everything is finalized,MD will input orders. Patient to be discharged in the morning if everything with hospice is complete and arranged. This RN spoke with daughter regarding all questions and concerns. Daughter is agreeable to have mother/patient placed on hospice at this time.
[2019-07-04] MEDS ORDERED: hydrALAZINE HCL 20 MG/ML VL IV PRN (18:15)
[2019-07-04] MEDS: CEPHALEXIN 250 MG CAP PO SCH ×2 (18:53→23:45)
--- NOTE | 2019-07-04 18:55 | NUR ---
Respiratory note: ASSESSED PT FOR PRN TX PT WAS AWAKE ON THE PHONE WITH A SITTER AT BEDSIDE. NO RESP DISTRESS NOTED. HR 85, RR 16, SPO2 95% ON ROOM AIR. BS ARE CLEAR AND DIMINISHED. NO INDICATION FOR TX AT THIS TIME. SITTER KNOWS TO HAVE RT PAGED IF TX IS NEEDED.
--- NOTE | 2019-07-04 19:26 | NUR ---
Closing Shift Note Patient resting in bed. No distress noted. Patient aware of pending discharge tomorrow. Sitter at bedside for safety.
[2019-07-04] MEDS: amLODIPine BESYLATE 5 MG TAB PO SCH (19:45)
--- NOTE | 2019-07-04 19:45 | NUR ---
assumed care, pt. awake, oriented x3, sitter at bedside, no c/o pain, no sob.
[2019-07-04] MEDS ORDERED: CLON0.5T3 PO (19:47)
[2019-07-04] MEDS ORDERED: CEPH250C PO (19:47)
[2019-07-04 21:43] VITALS: BP 131/74
[2019-07-04] MEDS: ATORVASTATIN 20 MG TAB PO SCH (21:52)
[2019-07-04] MEDS: clonazePAM 0.5 MG TAB PO SCH (21:52)
[2019-07-05 05:04] VITALS: BP 139/80
[2019-07-05] MEDS: CEPHALEXIN 250 MG CAP PO SCH ×2 (06:10→11:33)
--- NOTE | 2019-07-05 07:30 | NUR ---
Report received. Patient is sitting up in bed. Patient is awake but pleasantly confused. Patient has no complaints at this time. Call light in reach. Will continue to monitor. Sitter at bedside.
[2019-07-05 08:00] VITALS: BP 137/84
[2019-07-05] MEDS: GABAPENTIN 300 MG CAP PO SCH (09:19)
[2019-07-05] MEDS: ENOXAPARIN SOD 40 MG/0.4 ML SYRINGE SC SCH (09:19)
[2019-07-05] MEDS: PARoxetine 20 MG TAB PO SCH (09:20)
[2019-07-05] MEDS: clonazePAM 0.5 MG TAB PO SCH (09:20)
[2019-07-05] MEDS: amLODIPine BESYLATE 5 MG TAB PO SCH (09:20)
[2019-07-05] MEDS: ASPirin 81 mg TAB PO SCH (09:21)
--- NOTE | 2019-07-05 10:00 | NUR ---
Patient no longer has sitter. Bed alarm on. Waiting for discharge home on hospice. Will continue to monitor.
--- NOTE | 2019-07-05 10:22 | NUR ---
Received call from [facility]: [phone]. Face sheet, hospice order, labs, H&P faxed to [phone].
--- NOTE | 2019-07-05 10:30 | NUR ---
Respiratory note: PATIENT ASSESSED FOR PRN MED-NEB TX; TX NOT INDICATED AT THIS TIME PATIENT IS IN NO ACUTE RESPIRATORY DISTRESS AND DENIES NEED. PATIENT INSTRUCTED TO CALL FOR RT IF SHE FEELS THE NEED FOR TX AT A LATER TIME. SPO2 95% R/A
[2019-07-05] MEDS: LORazepam 2MG/ML-1ML VIAL IV PRN (11:33)
--- NOTE | 2019-07-05 12:30 | NUR ---
[facility] scheduled for 17:00.
[2019-07-05 12:51] VITALS: BP 137/84
[2019-07-05 13:00] VITALS: BP 124/79
--- NOTE | 2019-07-05 17:15 | NUR ---
Discharge instructions given as ordered. Encourage to follow up with PMD as instructed. All questions and concerns addressed. Patient verbalized understanding. Medication reconciliation form completed and copy given to patient. IV removed with catheter intact, pressure dressing applied. Telemetry unit returned to ICU. Patient taken to vehicle via wheelchair with all personal belongings, accompanied by staff and family member. No distress noted at time of departure. Patient transported home via gurney by [facility].
== END 2019-07-05 17:20 | disposition hospice, home (50) | DRG 757 ==
LOC: ER 11:17 → EDBD 11:17 → TELE 11:18 → TELE-CENTR 14:19
PROVIDERS: ADMIT Internal Medicine; ATTEND Internal Medicine
DX: F03.90 Unspecified dementia, unspecified severity, without behavioral disturbance, psychotic disturbance, mood disturbance, and anxiety (principal); F20.9 Schizophrenia, unspecified; E87.6 Hypokalemia; J44.9 Chronic obstructive pulmonary disease, unspecified; F41.9 Anxiety disorder, unspecified; I10 Essential (primary) hypertension; M19.90 Unspecified osteoarthritis, unspecified site; F31.9 Bipolar disorder, unspecified; F17.210 Nicotine dependence, cigarettes, uncomplicated; M54.5 Low back pain; R41.0 Disorientation, unspecified; G89.29 Other chronic pain; Z88.6 Allergy status to analgesic agent; Z79.899 Other long term (current) drug therapy; Z79.51 Long term (current) use of inhaled steroids; Z90.49 Acquired absence of other specified parts of digestive tract; Z81.1 Family history of alcohol abuse and dependence; Z82.61 Family history of arthritis; Z82.5 Family history of asthma and other chronic lower respiratory diseases; Z81.8 Family history of other mental and behavioral disorders; Z82.49 Family history of ischemic heart disease and other diseases of the circulatory system; Z83.3 Family history of diabetes mellitus; Z80.1 Family history of malignant neoplasm of trachea, bronchus and lung; Z80.0 Family history of malignant neoplasm of digestive organs; Z80.8 Family history of malignant neoplasm of other organs or systems; Z82.62 Family history of osteoporosis; Z83.42 Family history of familial hypercholesterolemia; Z80.41 Family history of malignant neoplasm of ovary; Z80.3 Family history of malignant neoplasm of breast; Z80.42 Family history of malignant neoplasm of prostate; Z82.3 Family history of stroke; Z83.438 Family history of other disorder of lipoprotein metabolism and other lipidemia; Z86.73 Personal history of transient ischemic attack (TIA), and cerebral infarction without residual deficits; N39.0 Urinary tract infection, site not specified
CPT/HCPCS: 36415; 70551; 80053; 80307; 81001; 82550; 82607; 82746; 84443; 84484; 85025; 85652; 87081; 93005; 96360; 97163; G0378; J2405